=== PATIENT | male | born 1970 | race Caucasian/White ===

== ENCOUNTER 2018-10-26 08:35 | Emergency (ER) | payer BC ==
[2018-10-26 08:50] VITALS: BP 121/74
--- NOTE | 2018-10-26 08:56 | UC ---
General HPI - HPI Summary HPI Summary: FELT A PINCH ON R INNER THIGH AND NOTED A TICK THIS AM. HE REMOVED THE TICK. PT STATES "I AM 100% CERTAIN IT WAS NOT THERE LAST NIGHT". NO RASH, FEVER OR JOINT PAINS. TICK AT BEDSIDE AND NOT ENGORGED. - History of Current Complaint Chief Complaint: Josee Stated Complaint: TICK BITE Time Seen by Provider: 10/26/18 08:51 Hx Obtained From: Patient Onset/Duration: Sudden Onset Pain Intensity: 3 - Allergy/Home Medications Allergies/Adverse Reactions: Allergies Allergy/AdvReac Type Severity Reaction Status Date / Time shellfish derived Allergy Hives Verified 10/26/18 08:45 Home Medications: Home Medications Omeprazole 20 mg PO DAILY 10/26/18 [History Confirmed 10/26/18] PMH/Surg Hx/FS Hx/Imm Hx GI/ History: Gastroesophageal Reflux - Surgical History Surgical History: Yes Surgery Procedure, Year, and Place: appy-age 16. [facility] - Family History Known Family History: Positive: Non-Contributory - Social History Lives: With Family Alcohol Use: None Substance Use Type: None Smoking Status (MU): Never Smoked Tobacco - Immunization History Vaccination Up to Date: Yes Review of Systems All Other Systems Reviewed And Are Negative: Yes Constitutional: Negative: Fever, Fatigue Skin: Negative: Rash Musculoskeletal: Negative: Arthralgia Physical Exam Triage Information Reviewed: Yes Appearance: Well-Appearing Vital Signs: Initial Vital Signs Temp 97.9 F 10/26/18 08:46 Pulse 57 10/26/18 08:46 Resp 17 10/26/18 08:46 BP 121/74 10/26/18 08:46 Pulse Ox 98 10/26/18 08:46 Vital Signs Reviewed: Yes Eyes: Positive: Conjunctiva Clear Respiratory: Positive: No respiratory distress Cardiovascular: Positive: RRR Musculoskeletal: Positive: ROM Intact Neurological: Positive: Alert Psychological: Positive: Age Appropriate Behavior Skin Exam: Normal, Other - TINY BRUISE/ABRASION R INNER THIGH WHERE TICK REMOVED. Course/Dx - Course Course Of Treatment: BITE SITE CLEANED. - Diagnoses Provider Diagnosis: Tick bite Discharge - Sign-Out/Discharge Documenting (check all that apply): Patient Departure All imaging exams completed and their final reports reviewed: No Studies - Discharge Plan Condition: Stable Disposition: HOME Patient Education Materials: Tick Bite (ED) Referrals: Megan Bustillos MD [Primary Care Provider] - If Needed - Billing Disposition and Condition Condition: STABLE Disposition: Home - Attestation Statements Provider Attestation: I was available for consult. This patient was seen by the [facility]. The patient was not presented to , seen by or examined by me -Shelley Turcios MD
== END 2018-10-26 09:04 | disposition home or self-care (01) ==
LOC: UCCORT 08:35
DX: S70.361A Insect bite (nonvenomous), right thigh, initial encounter (principal); K21.9 Gastro-esophageal reflux disease without esophagitis; Z91.013 Allergy to seafood; X58.XXXA Exposure to other specified factors, initial encounter
CPT/HCPCS: 99201; G0463